=== PATIENT | male | born 1950 | race Caucasian/White ===

== ENCOUNTER 2017-03-02 08:26 | Day surgery (SDC) | payer OTHER ==
[~2017-03-02] VITALS: Ht 185.4 cm; Wt 89.8 kg
[~2017-03-02 08:26] MED LIST: CEFAZOLIN SOD 1 GM/ ISO 50 ML PREMIX IV ONE
[2017-03-02] MEDS ORDERED: CEFAZOLIN SOD 2 GM in D5W 50 ML IV ONE (09:45)
[2017-03-02] MEDS ORDERED: IOHEXOL 50 ML IV ONE (11:57)
[2017-03-02] MEDS ORDERED: HYDROcodone/ACETAMIN 5-325 MG TAB (NORCO/ VICODIN) PO PRN ×2 (13:15)
[2017-03-02] MEDS ORDERED: HYDROmorphone 1 MG INJ. 1 MG/ML AMPUL IVP PRN (13:15)
[2017-03-02 14:11] VITALS: BP_SYST 120
--- NOTE | 2017-03-02 14:21 | NUR ---
[employer] faxed pt's discharge order to Srinivas [place] [employer] ([phone]).
[2017-03-02] MEDS ORDERED: D5/0.45 NS 1,000 ML IV SCH (15:00)
== END 2017-03-02 14:45 | disposition home or self-care (01) ==
LOC: SDS 08:26 → STU 08:28 → SMU 09:25 → EDBD 10:20 → SDS 14:45
PROVIDERS: ATTEND Colon & Rectal Surgery
DX: K80.10 Calculus of gallbladder with chronic cholecystitis without obstruction (principal); R22.1 Localized swelling, mass and lump, neck
CPT/HCPCS: 11426; 47563; 76000; J0690; J7060; J7120; Q9967; 88304; 88305; C1727; C1758